=== PATIENT | female | born 1960 | race Caucasian/White ===

== ENCOUNTER 2018-06-24 07:00 | Day surgery (SDC) | payer OTHER ==
[2018-06-24 07:29] VITALS: O2SAT 100
--- NOTE | 2018-06-24 08:23 | CP.SDSHP ---
Same Day Surgery H & P - History Proposed Procedure: colonoscopy Pre-Op Diagnosis: screening for colon cancer. change in bowels - Previous Medical/Surgical History Cardiac: Hypertension, Other (hypercholesterolemia) Pulmonary: Asthma Previous Surgical History: NONE - Allergies Allergies: Allergies Penicillins Allergy (Verified 06/24/18 07:16) URTICARIA - Physical Exam Vital Signs: Vital Signs 06/24/18 07:19 Temperature 98.7 F Pulse Rate 72 Respiratory 19 Rate Blood Pressure 153/74 H O2 Sat by Pulse 100 Oximetry Mental Status: Alert & Oriented x3 Neuro: WNL Heart: WNL Lungs: WNL GI: WNL - Impression Impression: change in bowels. screening for colon cancer Pt. Evaluated Today:Candidate for Anesthesia & Procedure: Yes - Date & Time Date: 06/24/18 Time: 08:23 Short Stay Discharge - Short Stay Discharge Admitting Diagnosis/Reason for Visit: SCREENING Disposition: HOME/ ROUTINE
[2018-06-24] MEDS ORDERED: Propofol 10 mg/ml Inj (20 ML) ONE (08:24)
[2018-06-24 10:20] VITALS: TEMP 98
[2018-06-24 10:29] VITALS: BP 138/64; PULSE 55; RESP 18
== END 2018-06-24 10:15 | disposition home or self-care (01) ==
LOC: C.ENDO 07:00
PROVIDERS: ATTEND Internal Medicine Gastroenterology
DX: K64.8 Other hemorrhoids (principal)
CPT/HCPCS: 45378; J2704